=== PATIENT | male | born 1960 | race Caucasian/White ===

== ENCOUNTER → 2016-09-29 | Outpatient (CLI) | payer OTHER ==
--- NOTE | 2016-09-29 12:00 | Diagnostic Imaging Report ---
INDICATION: Neck and lung mass. CT neck: Multiple contiguous axial CT images of the neck are obtained after intravenous administration of iodinated contrast. FINDINGS: There is asymmetric fullness of the left tonsillar region. Bilateral tonsillar calcifications are noted. There is an asymmetric mass to left of midline in the vallecula measuring approximately 1.6 x 1.4 cm. This results in distortion of the airway. In addition, there is pathologic adenopathy in the left submandibular region which corresponds to patient's palpable abnormality. Largest lymph node measures 3.7 x 2.3 cm in axial plane. Submandibular and parotid salivary glands reveal no abnormality. Great vessels in the neck appear patent. No thyroid gland lesion is seen. IMPRESSION: 1.6 x 1.4 cm mass at the level of the left vallecula with pathologic adenopathy in the left submandibular region. This may represent primary head and neck cancer such as squamous cell carcinoma, although clinical correlation and direct visualization are recommended. Note is made of diffuse cervical spondylosis. CT chest: Multiple contiguous axial CT images of the thorax are obtained after intravenous administration of iodinated contrast. There is moderate centrilobular emphysema throughout the lungs with an upper lobe predominance. There is an irregular, mildly spiculated 2.3 x 1.5 cm mass in the right upper lobe. This does demonstrate progressive are all density which could be due to vigorous enhancement or calcification. Otherwise, there is no consolidation or additional mass seen in the lungs. There is no significant pleural or pericardial fluid. Subcentimeter lymph nodes are seen in the mediastinum or pulmonary joe. IMPRESSION: Suspicious mass measuring 2.3 x 1.5 cm in the upper lobe of the right lung. This could be due to either primary or metastatic neoplasm in the lung. Given patient's left neck mass and adenopathy, consideration could be given to PET scan CT scan for further assessment and staging purposes. Dictated by: Dictated on workstation # [id number]
== END ==
LOC: RAD 10:05
PROVIDERS: ATTEND Family Medicine
DX: R91.1 Solitary pulmonary nodule (principal); R22.1 Localized swelling, mass and lump, neck
CPT/HCPCS: 70491; 71260; Q9967